=== PATIENT | female | born 1965 | race American Indian/Alaskan Native ===

== ENCOUNTER 2017-01-31 14:53 | Emergency (ER) | payer SELFPAY ==
[2017-01-31 15:33] VITALS: BP 142/102
--- NOTE | 2017-01-31 16:47 | Emergency Department Report ---
- General Chief Complaint: Upper Respiratory Infection Stated Complaint: FEVER/LOZANO/BODYACHES Time Seen by Provider: 01/31/17 16:43 Source: patient Mode of arrival: Ambulatory Limitations: No Limitations - History of Present Illness Initial Comments: Patient complaining of sinus pressure and pain consistent with multiple episodes of sinusitis in the past. MD Complaint: fever, cough, nasal congestion, sinus pain -: week(s) Severity scale (0 -10): 4 Quality: dull Improves With: nothing Context: sick contacts Associated Symptoms: fever, chills, myalgias, headache, rhinorrhea, nasal congestion, sore throat, cough. denies: stiff neck, shortness of breath - Related Data Home Medications Medication Instructions Recorded Confirmed Last Taken No Known Home Medications [No 01/31/17 01/31/17 Unknown Reported Home Medications] Allergies Allergy/AdvReac Type Severity Reaction Status Date / Time diphenhydramine HCl Allergy Unknown Verified 01/31/17 15:28 [From Benadryl] promethazine HCl Allergy Rash Verified 01/31/17 15:28 [From Phenergan] Sulfa (Sulfonamide Allergy Unknown Verified 01/31/17 15:28 Antibiotics) ED Review of Systems ROS: Stated complaint: FEVER/LOZANO/BODYACHES Other details as noted in HPI Constitutional: chills, fever Eyes: denies: eye pain, eye discharge, vision change ENT: throat pain, congestion. denies: ear pain, epistaxis Respiratory: cough. denies: shortness of breath, wheezing Cardiovascular: denies: chest pain, palpitations Endocrine: no symptoms reported Gastrointestinal: denies: abdominal pain, nausea, vomiting, diarrhea Genitourinary: denies: urgency, dysuria, discharge Musculoskeletal: denies: back pain, joint swelling, arthralgia Skin: denies: rash, lesions Neurological: denies: headache ED Past Medical Hx - Past Medical History Previous Medical History?: Yes Additional medical history: Sinusitis, Osteoarthritis - Surgical History Past Surgical History?: Yes Additional Surgical History: , Tubaligation, Hysterectomy - Social History Smoking Status: Never Smoker Substance Use Type: Alcohol, Non Opiate Pain, Prescribed - Medications Home Medications: Home Medications Medication Instructions Recorded Confirmed Last Taken Type No Known Home Medications [No 01/31/17 01/31/17 Unknown History Reported Home Medications] ED Physical Exam - General Limitations: No Limitations General appearance: alert, in no apparent distress - Eye Eye exam: Present: normal appearance, PERRL, EOMI - ENT ENT exam: Present: normal exam, mucous membranes dry, TM's normal bilaterally, normal external ear exam, other (sinus tenderness on percussion) - Neck Neck exam: Present: normal inspection, full ROM. Absent: tenderness, meningismus, lymphadenopathy - Respiratory Respiratory exam: Present: normal lung sounds bilaterally. Absent: respiratory distress, wheezes, rales, rhonchi, stridor - Cardiovascular Cardiovascular Exam: Present: regular rate - GI/Abdominal GI/Abdominal exam: Present: soft. Absent: distended, tenderness, guarding, rebound, rigid, normal bowel sounds, diminished bowel sounds ED Course Vital Signs 01/31/17 15:29 Temperature 98.8 F Pulse Rate 86 Respiratory 20 Rate Blood Pressure 142/102 O2 Sat by Pulse 99 Oximetry Critical care attestation.: If time is entered above; I have spent that time in minutes in the direct care of this critically ill patient, excluding procedure time. ED Disposition Clinical Impression: Sinusitis Disposition: DISCHARGED TO HOME OR SELFCARE Is pt being admited?: No Condition: Stable Instructions: Sinusitis (ED) Forms: Work/School Release Form(ED)
[2017-01-31] MEDS ORDERED: XYLOCAINE 1% MPF 5 mL INFILTRATI ONE (17:06)
[2017-01-31] MEDS ORDERED: ROCEPHIN IM ONE (17:06)
== END 2017-01-31 17:39 | disposition home or self-care (01) ==
LOC: ED 14:53
DX: J32.9 Chronic sinusitis, unspecified (principal)
CPT/HCPCS: 96372; 99283; J0696

== ENCOUNTER 2018-03-16 20:13 | Emergency (ER) | payer SELFPAY ==
[2018-03-16 23:15] LABS: Bilirubin,Urine NEG (Negative); Blood,Urine SM (Negative); Color,Urine Yellow (Yellow); Mucus,Urine FEW /HPF; Urobilinogen,Urine < 2.0 mg/dL (<2.0)
--- NOTE | 2018-03-17 03:49 | Emergency Department Report ---
ED Female HPI - General Chief complaint: Urogenital-Female Stated complaint: C/O OF POSS UTI Time Seen by Provider: 03/17/18 02:57 Source: patient Mode of arrival: Ambulatory Limitations: No Limitations - History of Present Illness Initial comments: Patient complain a urinary burn in and she saw some specks of blood in her urine last week but none this week. Complaining of headache that she took Aleve for which relieved her headache but she is still having some headache at toilet at 10 previously was 8 out of 10 when she was in triage. Headache is located frontally and patient that she know she has a urinary tract infection. This is how it usually present. Denies any nausea or vomiting. Denies any abdominal back pain. Denies any fever or chills. Pain with urinating and which is burning in and resolve after urinating. Patient headache is located to the front of her had better with Aleve and it is episodic throughout the day. Her blood pressure was 152/109 and denies high blood pressure but reports that her blood pressure usually goes up when she is sick. Patient not concerned for STD. MD Complaint: dysuria Onset/Timin -: week(s) Location: other (burning with urination and also headache) Radiation: non-radiating Severity: severe Severity scale (0 -10): 8 Quality: aching, other (burning with urination) Consistency: intermittent Improves with: medication Worsens with: urination Are you Now?: No (hysterectomy) Associated Symptoms: headaches, dysuria, hematuria (episodic last week). denies : vaginal discharge, vaginal bleeding, abdominal pain, nausea/vomiting, fever/ chills, loss of appetite, rash, seizure, shortness of breath, syncope, weakness - Related Data Sexually active: No Previous Rx's Medication Instructions Recorded Last Taken Type Ciprofloxacin HCl [Cipro] 500 mg PO Q12H 7 Days #14 tablet 03/17/18 Unknown Rx Fluconazole [Diflucan TAB] 150 mg PO ONCE PRN 1 Days #1 tablet 03/17/18 Unknown Rx Ibuprofen [Motrin] 600 mg PO Q8H PRN #12 tablet 03/17/18 Unknown Rx Allergies Allergy/AdvReac Type Severity Reaction Status Date / Time diphenhydramine HCl Allergy Unknown Verified 01/31/17 15:28 [From Benadryl] promethazine HCl Allergy Rash Verified 01/31/17 15:28 [From Phenergan] Sulfa (Sulfonamide Allergy Unknown Verified 01/31/17 15:28 Antibiotics) ED Review of Systems ROS: Stated complaint: C/O OF POSS UTI Other details as noted in HPI Constitutional: denies: chills, fever Eyes: denies: eye pain, eye discharge, vision change ENT: denies: ear pain, throat pain, congestion Respiratory: denies: cough, shortness of breath, SOB with exertion, SOB at rest , stridor, wheezing Cardiovascular: denies: chest pain, palpitations, dyspnea on exertion, edema, syncope, paroxysmal nocturnal dyspnea Gastrointestinal: denies: abdominal pain, nausea, vomiting, diarrhea, constipation, hematemesis, melena, hematochezia Genitourinary: hematuria. denies: urgency, dysuria, frequency, discharge Musculoskeletal: denies: back pain, joint swelling, arthralgia Skin: denies: rash, lesions Neurological: denies: headache, weakness, paresthesias Psychiatric: denies: anxiety, depression Hematological/Lymphatic: denies: easy bleeding, easy bruising ED Past Medical Hx - Past Medical History Previous Medical History?: Yes Additional medical history: Sinusitis, Osteoarthritis - Surgical History Past Surgical History?: Yes Additional Surgical History: , Tubaligation, Hysterectomy - Family History Family history: hypertension - Social History Smoking Status: Former Smoker Substance Use Type: Alcohol Other Social History: Patient single, works and lives alone - Medications Home Medications: Home Medications Medication Instructions Recorded Confirmed Last Taken Type Ciprofloxacin HCl [Cipro] 500 mg PO Q12H 7 Days #14 tablet 03/17/18 Unknown Rx Fluconazole [Diflucan TAB] 150 mg PO ONCE PRN 1 Days #1 tablet 03/17/18 Unknown Rx Ibuprofen [Motrin] 600 mg PO Q8H PRN #12 tablet 03/17/18 Unknown Rx ED Physical Exam - General Limitations: No Limitations General appearance: alert, in no apparent distress - Head Head exam: Present: atraumatic, normocephalic, normal inspection, other (normal exam) - Eye Eye exam: Present: normal appearance, PERRL, EOMI Pupils: Present: normal accommodation - ENT ENT exam: Present: normal exam, normal orophraynx, mucous membranes moist, TM's normal bilaterally, normal external ear exam - Neck Neck exam: Present: normal inspection, other (no C-spine tenderness). Absent: tenderness, lymphadenopathy - Respiratory Respiratory exam: Present: normal lung sounds bilaterally. Absent: respiratory distress, chest wall tenderness, accessory muscle use - Cardiovascular Cardiovascular Exam: Present: regular rate, normal rhythm. Absent: systolic murmur, diastolic murmur - GI/Abdominal GI/Abdominal exam: Present: soft, normal bowel sounds. Absent: distended, tenderness, guarding, rebound, rigid, organomegaly, mass, bruit - Extremities Exam Extremities exam: Present: normal inspection, full ROM, normal capillary refill , other (no clubbing, cyanosis or edema. +2 pulses to all extremities and no neurovascular compromise). Absent: tenderness, pedal edema, joint swelling, calf tenderness - Back Exam Back exam: Present: normal inspection - Neurological Exam Neurological exam: Present: alert, oriented X3, normal gait, reflexes normal, other (no gross focal deficit). Absent: motor sensory deficit - Psychiatric Psychiatric exam: Present: normal affect, normal mood - Skin Skin exam: Present: warm, dry, intact, normal color. Absent: rash ED Course Vital Signs 03/16/18 03/17/18 20:42 04:43 Pulse Rate 74 Respiratory 18 Rate Blood Pressure 152/109 Blood Pressure 134/80 [Left] O2 Sat by Pulse 98 Oximetry Vital Signs 03/16/18 03/17/18 20:42 04:43 Pulse Rate 74 Respiratory 18 Rate Blood Pressure 152/109 Blood Pressure 134/80 [Left] O2 Sat by Pulse 98 Oximetry Vital Signs 03/16/18 03/17/18 20:42 04:43 Pulse Rate 74 Respiratory 18 Rate Blood Pressure 152/109 Blood Pressure 134/80 [Left] O2 Sat by Pulse 98 Oximetry - Reevaluation(s) Reevaluation #1: 03/17/18 04:44 She received Motrin 800 mg in emergency room for headache. ED Medical Decision Making - Lab Data Lab Results 03/16/18 Range/Units Unknown Urine Color Yellow (Yellow) Urine Turbidity Clear (Clear) Urine pH 5.0 (5.0-7.0) Ur Specific [place] 1.019 (1.003-1.030) Urine Protein 30 mg/dl (Negative) mg/dL Urine Glucose (UA) Neg (Negative) mg/dL Urine Ketones Neg (Negative) mg/dL Urine Blood Sm (Negative) Urine Nitrite Neg (Negative) Urine Bilirubin Neg (Negative) Urine Urobilinogen < 2.0 (<2.0) mg/dL Ur Leukocyte Esterase Neg (Negative) Urine WBC (Auto) 8.0 H (0.0-6.0) /HPF Urine RBC (Auto) 15.0 (0.0-6.0) /HPF U Epithel Cells (Auto) < 1.0 (0-13.0) /HPF Urine Mucus Few /HPF Urine culture pending - Medical Decision Making ED course: Patient here reports urinary burning in with episodic headache and was sent to have white blood count in her urine. She is small amount of blood otherwise all other values are normal. Patient with symptomatic pyuria and will be treated with Cipro as she said this is what worked for her in the past. Patient is also requesting Diflucan one that she get a yeast infection with antibiotic. She was given Motrin 800 mg here in emergency room for pain. Blood pressure is better. Patient discharged home she has a primary care physician to follow-up and 3-5 days. Urine culture sent. Patient when asked, is not concerned for STD or testing .Patient educated on diagnosis and treatment plan along with medication and she voiced understanding and and discharged home with prescription for Cipro, Motrin and Diflucan . Critical care attestation.: If time is entered above; I have spent that time in minutes in the direct care of this critically ill patient, excluding procedure time. ED Disposition Clinical Impression: UTI (urinary tract infection) with pyuria, Dysuria Nonintractable episodic headache Qualifiers: Headache type: unspecified Qualified Code(s): R51 - Headache Disposition: DC- TO HOME OR SELFCARE Is pt being admited?: No Does the pt Need Aspirin: No Condition: Stable Instructions: Urinary Tract Infection in Women (ED), Acute Headache (ED), Dysuria (ED) Additional Instructions: Please follow-up with your primary care physician in 3-5 days Increasing her fluid intake to 2 L of water daily. Keep a log a few blood pressure and take a primary care visit with you as her blood pressure was elevated when he came in triage area. The antibiotic as prescribed for urinary tract infection Take Diflucan on if you develop yeast infection. Take Motrin for headache Prescriptions: Ciprofloxacin HCl [Cipro] 500 mg PO Q12H 7 Days #14 tablet Fluconazole [Diflucan TAB] 150 mg PO ONCE PRN 1 Days #1 tablet PRN Reason: yeast prophylaxis Ibuprofen [Motrin] 600 mg PO Q8H PRN #12 tablet PRN Reason: Pain Referrals: PRIMARY CARE, [Primary Care Provider] - 3-5 Days Forms: Work/School Release Form(ED)
[2018-03-17] MEDS ORDERED: MOTRIN PO ONE (04:40)
[2018-03-17 05:11] VITALS: BP 152/94
== END 2018-03-17 05:13 | disposition home or self-care (01) ==
LOC: ED 20:13
DX: N39.0 Urinary tract infection, site not specified (principal); R51 Headache; Z87.891 Personal history of nicotine dependence; Z88.2 Allergy status to sulfonamides; Z88.8 Allergy status to other drugs, medicaments and biological substances
CPT/HCPCS: 81001; 87086; 99283

== ENCOUNTER 2018-07-19 16:57 | Emergency (ER) | payer SELFPAY ==
--- NOTE | 2018-07-19 20:24 | Emergency Department Report ---
ED Female HPI - General Chief complaint: Urogenital-Female Stated complaint: VAGINAL ITCHING/DISCHARGE/ODOR Time Seen by Provider: 07/19/18 19:50 Source: patient Mode of arrival: Ambulatory Limitations: No Limitations - History of Present Illness Initial comments: There is a 52 year old -[place] female who presents for vaginal discharge pain itching 1 week of using scented body soaps patient denies possibility of STD does endorse vaginal discharge white thick malodorous itching burning mild abdominal cramping there is no dysuria urgency or frequency No back pain or vaginal bleeding patient is most postmenopausal MD Complaint: vaginal discharge Onset/Timin -: week(s) Radiation: suprapubic Severity: moderate Severity scale (0 -10): 3 Quality: burning, other (itching ) Consistency: intermittent Improves with: none Worsens with: movement Are you Now?: No Last Menstrual Period: 07/19/17 EDC: 04/25/18 Associated Symptoms: vaginal discharge, other (itching ) - Related Data Sexually active: Yes Previous Rx's Medication Instructions Recorded Last Taken Type Ciprofloxacin HCl [Cipro] 500 mg PO Q12H 7 Days #14 tablet 03/17/18 Unknown Rx Fluconazole [Diflucan TAB] 150 mg PO ONCE PRN 1 Days #1 tablet 03/17/18 Unknown Rx Ibuprofen [Motrin] 600 mg PO Q8H PRN #12 tablet 03/17/18 Unknown Rx Fluconazole [Diflucan TAB] 150 mg PO ONCE #1 tablet 07/19/18 Unknown Rx Nitrofurantoin Monohyd/M-Cryst 100 mg PO BID #14 capsule 07/19/18 Unknown Rx [Macrobid 100 mg Capsule] metroNIDAZOLE [Flagyl] 500 mg PO Q12HR #20 tab 07/19/18 Unknown Rx Allergies Allergy/AdvReac Type Severity Reaction Status Date / Time diphenhydramine HCl Allergy Unknown Verified 07/19/18 17:15 [From Benadryl] promethazine HCl Allergy Rash Verified 07/19/18 17:15 [From Phenergan] Sulfa (Sulfonamide Allergy Unknown Verified 07/19/18 17:15 Antibiotics) ED Review of Systems ROS: Stated complaint: VAGINAL ITCHING/DISCHARGE/ODOR Other details as noted in HPI Constitutional: denies: chills, fever Eyes: denies: eye pain, eye discharge, vision change ENT: denies: ear pain, throat pain Respiratory: denies: cough, shortness of breath, wheezing Cardiovascular: denies: chest pain, palpitations Endocrine: no symptoms reported Gastrointestinal: denies: abdominal pain, nausea, diarrhea Genitourinary: discharge. denies: urgency, dysuria, frequency, hematuria, dyspareunia Musculoskeletal: denies: back pain, joint swelling, arthralgia Skin: denies: rash, lesions Neurological: denies: headache, weakness, paresthesias Psychiatric: denies: anxiety, depression Hematological/Lymphatic: denies: easy bleeding, easy bruising ED Past Medical Hx - Past Medical History Previous Medical History?: No Additional medical history: Sinusitis, Osteoarthritis - Surgical History Additional Surgical History: , Tubaligation, Hysterectomy - Social History Smoking Status: Never Smoker Substance Use Type: None - Medications Home Medications: Home Medications Medication Instructions Recorded Confirmed Last Taken Type Ciprofloxacin HCl [Cipro] 500 mg PO Q12H 7 Days #14 tablet 03/17/18 Unknown Rx Fluconazole [Diflucan TAB] 150 mg PO ONCE PRN 1 Days #1 tablet 03/17/18 Unknown Rx Ibuprofen [Motrin] 600 mg PO Q8H PRN #12 tablet 03/17/18 Unknown Rx Fluconazole [Diflucan TAB] 150 mg PO ONCE #1 tablet 07/19/18 Unknown Rx Nitrofurantoin Monohyd/M-Cryst 100 mg PO BID #14 capsule 07/19/18 Unknown Rx [Macrobid 100 mg Capsule] metroNIDAZOLE [Flagyl] 500 mg PO Q12HR #20 tab 07/19/18 Unknown Rx ED Physical Exam - General Limitations: No Limitations General appearance: alert, in no apparent distress - Head Head exam: Present: atraumatic, normocephalic - Eye Eye exam: Present: normal appearance - ENT ENT exam: Present: mucous membranes moist - Neck Neck exam: Present: normal inspection - Respiratory Respiratory exam: Present: normal lung sounds bilaterally. Absent: respiratory distress - Cardiovascular Cardiovascular Exam: Present: regular rate, normal rhythm. Absent: systolic murmur, diastolic murmur, rubs, gallop - GI/Abdominal GI/Abdominal exam: Present: soft, normal bowel sounds. Absent: tenderness, bruit, hernia - Rectal Rectal exam: Present: deferred - External exam: Present: normal external exam. Absent: erythema, swelling, lesions, lacerations, ecchymosis, bleeding Speculum exam: Present: erythema, vaginal discharge (white thick malodorous, fishy smell, ). Absent: cervical discharge, vaginal bleeding, foreign body, tissue, laceration Bi-manual exam: Present: normal bi-manual exam. Absent: cervical motion tendernes, adnexal tenderness, adnexal mass, uterine enlargement, uterine tenderness - Extremities Exam Extremities exam: Present: normal inspection. Absent: full ROM, tenderness - Back Exam Back exam: Present: normal inspection, full ROM - Neurological Exam Neurological exam: Present: alert, oriented X3 - Psychiatric Psychiatric exam: Present: normal affect, normal mood - Skin Skin exam: Present: warm, dry, intact, normal color. Absent: rash ED Course Vital Signs 07/19/18 17:15 Temperature 98.3 F Pulse Rate 77 Respiratory 18 Rate Blood Pressure 135/77 O2 Sat by Pulse 98 Oximetry ED Medical Decision Making - Lab Data Laboratory Tests 07/19/18 20:04 Urine Color Yellow Urine Turbidity Slightly-cloudy Urine pH 5.0 Ur Specific [place] 1.018 Urine Protein <15 mg/dl Urine Glucose (UA) Neg Urine Ketones Neg Urine Blood Neg Urine Nitrite Neg Urine Bilirubin Neg Urine Urobilinogen < 2.0 Ur Leukocyte Esterase Lg Urine WBC (Auto) 6.0 Urine RBC (Auto) 5.0 U Epithel Cells (Auto) 7.0 Urine Mucus Few - Medical Decision Making As as a UTI with bv would treat for same patient will follow up with PCP N2 to 3 days Macrobid Flagyl and Diflucan patient verbalizes agreement and understanding with same will be DC'd home in stable condition at this time Critical care attestation.: If time is entered above; I have spent that time in minutes in the direct care of this critically ill patient, excluding procedure time. ED Disposition Clinical Impression: Bacterial vaginosis UTI (urinary tract infection) Qualifiers: Urinary tract infection type: acute cystitis Hematuria presence: without hematuria Qualified Code(s): N30.00 - Acute cystitis without hematuria Disposition: DC-01 TO HOME OR SELFCARE Is pt being admited?: No Does the pt Need Aspirin: No Condition: Good Instructions: Bacterial Vaginosis (ED), Urinary Tract Infection in Women (ED) Prescriptions: Fluconazole [Diflucan TAB] 150 mg PO ONCE #1 tablet metroNIDAZOLE [Flagyl] 500 mg PO Q12HR #20 tab Nitrofurantoin Monohyd/M-Cryst [Macrobid 100 mg Capsule] 100 mg PO BID #14 capsule Referrals: PRIMARY CARE, [Primary Care Provider] - 3-5 Days Forms: Work/School Release Form(ED) Time of Disposition: 21:20
[2018-07-19 21:09] LABS: Bilirubin,Urine NEG (Negative); Blood,Urine NEG (Negative); Color,Urine Yellow (Yellow); Mucus,Urine FEW /HPF; Protein,Urine <15 mg/dL mg/dL (Negative); Urobilinogen,Urine < 2.0 mg/dL (<2.0)
[2018-07-19 21:36] VITALS: BP 156/103
== END 2018-07-19 21:38 | disposition home or self-care (01) ==
LOC: ED 16:57
DX: N76.0 Acute vaginitis (principal); B96.89 Other specified bacterial agents as the cause of diseases classified elsewhere; N30.00 Acute cystitis without hematuria; M19.90 Unspecified osteoarthritis, unspecified site; Z98.51 Tubal ligation status; Z90.710 Acquired absence of both cervix and uterus; Z88.8 Allergy status to other drugs, medicaments and biological substances; Z88.2 Allergy status to sulfonamides; Z88.1 Allergy status to other antibiotic agents
CPT/HCPCS: 81001; 87210; 87591; 99283

== ENCOUNTER 2020-09-14 14:11 | Emergency (ER) | payer SELFPAY ==
[2020-09-14 14:23] VITALS: BP 160/110
--- NOTE | 2020-09-14 17:08 | Emergency Department Report ---
- General Chief Complaint: Upper Respiratory Infection Stated Complaint: SINUS INFECTION/COUGH/HEADACHE Source: patient Mode of arrival: Ambulatory Limitations: No Limitations - History of Present Illness Initial Comments: Patient complaining of cough upper respiratory infection for 1 week which consist of nasal congestion frontal headache yellow nasal discharge she is using Mucinex D with no relief. She denies fever chest pain shortness of breath no nausea vomiting no loss of taste no change in her appetite. MD Complaint: cough, rhinorrhea, nasal congestion, sinus pain -: week(s) (1) Severity: mild Worsens With: nothing Associated Symptoms: headache, rhinorrhea, nasal congestion, sore throat, cough. denies: fever, chills, myalgias, shortness of breath, nausea, vomiting, diarrhea, dysuria, confusion, right sweats, weight loss, hoarseness, ear pain Treatments Prior to Arrival: other (Mucinex D) - Related Data Previous Rx's Medication Instructions Recorded Last Taken Type Ciprofloxacin HCl [Cipro] 500 mg PO Q12H 7 Days #14 tablet 03/17/18 Unknown Rx Fluconazole (Nf) [Diflucan TAB] 150 mg PO ONCE PRN 1 Days #1 tablet 03/17/18 Unknown Rx Ibuprofen [Motrin] 600 mg PO Q8H PRN #12 tablet 03/17/18 Unknown Rx Fluconazole (Nf) [Diflucan TAB] 150 mg PO ONCE #1 tablet 07/19/18 Unknown Rx Nitrofurantoin Monohyd/M-Cryst 100 mg PO BID #14 capsule 07/19/18 Unknown Rx [Macrobid 100 mg Capsule] metroNIDAZOLE [Flagyl] 500 mg PO Q12HR #20 tab 07/19/18 Unknown Rx Amoxicillin [Amoxicillin TAB] 875 mg PO BID 10 Days #20 tablet 09/14/20 Unknown Rx Fluconazole [Diflucan TAB] 200 mg PO QDAY #1 tablet 09/14/20 Unknown Rx methylPREDNISolone [Medrol 4MG 4 mg PO DAILY #1 tab.ds.pk 09/14/20 Unknown Rx DOSEPAK (21 tabs)] Allergies Allergy/AdvReac Type Severity Reaction Status Date / Time diphenhydramine HCl Allergy Unknown Verified 07/19/18 17:15 [From Benadryl] promethazine HCl Allergy Rash Verified 07/19/18 17:15 [From Phenergan] Sulfa (Sulfonamide Allergy Unknown Verified 07/19/18 17:15 Antibiotics) ED Review of Systems ROS: Stated complaint: SINUS INFECTION/COUGH/HEADACHE Other details as noted in HPI Constitutional: no symptoms reported. denies: chills, fever Eyes: denies: eye pain, eye discharge, vision change ENT: congestion. denies: ear pain, throat pain, dental pain, hearing loss Respiratory: cough. denies: shortness of breath, SOB with exertion, SOB at rest, wheezing Cardiovascular: denies: chest pain, palpitations, dyspnea on exertion, orthopnea, edema, syncope Endocrine: denies: excessive sweating, flushing, increased thirst, increased urine Gastrointestinal: nausea. denies: abdominal pain, vomiting, constipation Genitourinary: denies: urgency, dysuria Musculoskeletal: denies: back pain Neurological: headache Psychiatric: denies: anxiety, depression ED Past Medical Hx - Past Medical History Previous Medical History?: No Additional medical history: Sinusitis, Osteoarthritis - Surgical History Additional Surgical History: , Tubaligation, Hysterectomy - Social History Smoking Status: Never Smoker - Medications Home Medications: Home Medications Medication Instructions Recorded Confirmed Last Taken Type Ciprofloxacin HCl [Cipro] 500 mg PO Q12H 7 Days #14 tablet 03/17/18 Unknown Rx Fluconazole (Nf) [Diflucan TAB] 150 mg PO ONCE PRN 1 Days #1 tablet 03/17/18 Unknown Rx Ibuprofen [Motrin] 600 mg PO Q8H PRN #12 tablet 03/17/18 Unknown Rx Fluconazole (Nf) [Diflucan TAB] 150 mg PO ONCE #1 tablet 07/19/18 Unknown Rx Nitrofurantoin Monohyd/M-Cryst 100 mg PO BID #14 capsule 07/19/18 Unknown Rx [Macrobid 100 mg Capsule] metroNIDAZOLE [Flagyl] 500 mg PO Q12HR #20 tab 07/19/18 Unknown Rx Amoxicillin [Amoxicillin TAB] 875 mg PO BID 10 Days #20 tablet 09/14/20 Unknown Rx Fluconazole [Diflucan TAB] 200 mg PO QDAY #1 tablet 09/14/20 Unknown Rx methylPREDNISolone [Medrol 4MG 4 mg PO DAILY #1 tab.ds.pk 09/14/20 Unknown Rx DOSEPAK (21 tabs)] ED Physical Exam - General Limitations: No Limitations General appearance: alert, in no apparent distress - Head Head exam: Present: atraumatic - Eye Eye exam: Present: normal appearance, EOMI - ENT ENT exam: Present: normal orophraynx, mucous membranes moist, TM's normal bilaterally - Neck Neck exam: Present: normal inspection, full ROM, other (No frontal sinus tenderness positive maxillary sinus tenderness). Absent: tenderness, lymphadenopathy - Respiratory Respiratory exam: Present: normal lung sounds bilaterally. Absent: respiratory distress, wheezes, chest wall tenderness - Cardiovascular Cardiovascular Exam: Present: regular rate, normal heart sounds - Extremities Exam Extremities exam: Present: normal inspection - Neurological Exam Neurological exam: Present: alert, oriented X3 - Psychiatric Psychiatric exam: Present: normal affect - Skin Skin exam: Present: warm, dry, intact ED Course Vital Signs 09/14/20 14:19 Temperature 98.1 F Pulse Rate 89 Respiratory 14 Rate Blood Pressure 160/110 O2 Sat by Pulse 99 Oximetry ED Medical Decision Making - Medical Decision Making 55-year-old female complaining of nasal congestion headache frontal headache nonproductive cough x1 week. She is treating with Mucinex with no improvement she appears to be in no distress respirations easy unlabored basically normal exam with the exception of bilateral maxillary sinus tenderness Critical Care Time: No Critical care attestation.: If time is entered above; I have spent that time in minutes in the direct care of this critically ill patient, excluding procedure time. ED Disposition Clinical Impression: Upper respiratory infection Qualifiers: URI type: unspecified viral URI Qualified Code(s): J06.9 - Acute upper respiratory infection, unspecified Acute sinusitis Qualifiers: Sinusitis location: maxillary Recurrence: recurrent Qualified Code(s): J01.01 - Acute recurrent maxillary sinusitis Disposition: - TO HOME OR SELFCARE Is pt being admited?: No Does the pt Need Aspirin: No Condition: Stable Instructions: Upper Respiratory Infection, Adult, Sinusitis, Adult Additional Instructions: Take medications as prescribed. Okay to do nasal rinses with warm water. Follow-up with your primary care doctor in 3 to 5 days if no improvement if your symptoms continue please refer to the flyer with community [employer] testing sites. Okay to take [id number] Advil or Tylenol as directed by package insert for pain Prescriptions: Amoxicillin [Amoxicillin TAB] 875 mg PO BID 10 Days #20 tablet Fluconazole [Diflucan TAB] 200 mg PO QDAY #1 tablet methylPREDNISolone [Medrol 4MG DOSEPAK (21 tabs)] 4 mg PO DAILY #1 tab.ds.pk Referrals: PRIMARY CARE, [Primary Care Provider] - 3-5 Days Time of Disposition: 17:29
== END 2020-09-14 17:51 | disposition home or self-care (01) ==
LOC: ED 14:11
DX: J06.9 Acute upper respiratory infection, unspecified (principal); J01.90 Acute sinusitis, unspecified; Z79.899 Other long term (current) drug therapy; Z88.2 Allergy status to sulfonamides; Z88.8 Allergy status to other drugs, medicaments and biological substances; Z98.890 Other specified postprocedural states; Z90.710 Acquired absence of both cervix and uterus; Z98.51 Tubal ligation status
CPT/HCPCS: 99281